=== PATIENT | male | born 1990 | race Caucasian/White ===

== ENCOUNTER 2024-05-01 04:33 | Emergency (ER) | payer MEDICAID ==
--- NOTE | 2024-05-01 05:07 | ED Physician Documentation ---
PD HPI HEADACHE - Stated complaint Stated Complaint: HEADACHE/VOMITING - Chief complaint Chief Complaint: Neuro - History obtained from History obtained from: Patient - Additional information Additional information: HPI from patient. Patient woke from sleep at approximately 3:30 AM this morning with severe bilateral parietooccipital WOODY associated with nausea (no vomiting) and photophobia. Denies visual changes. Denies h/o similar headaches; patient says he has had headaches before but never this severe and with these other features (nausea, photophobia). Denies injury, denies fever. PD PAST MEDICAL HISTORY - Past Medical History Past Medical History: Yes Psych: Post traumatic stress disorder - Past Surgical History Past Surgical History: No - Present Medications Home Medications: Ambulatory Orders Medication Instructions Recorded Confirmed PARoxetine HCL [Paxil] 20 mg PO DAILY 05/01/24 05/01/24 SUMAtriptan [Imitrex] 25 mg PO ONCE PRN #14 tablet 05/01/24 - Allergies Allergies/Adverse Reactions: Allergies Allergy/AdvReac Type Severity Reaction Status Date / Time No Known Drug Allergies Allergy Verified 05/01/24 04:41 - Social History Does the pt smoke?: No Smoking Status: Never smoker Does the pt drink ETOH?: No Does the pt have substance abuse?: No PD ED PE NORMAL - Vitals Vital signs reviewed: Yes - General General: Alert and oriented X 3, No acute distress (NAD although lights off in room for patient comfort and he is partially shielding his eyes from the light coming in from the hallway), Well developed/nourished - HEENT HEENT: PERRL, EOMI - Neck Neck: Supple, no meningeal sign - Cardiac Cardiac: RRR, No murmur - Respiratory Respiratory: No respiratory distress, Clear bilaterally - Neuro Neuro: Alert and oriented X 3, 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 Options for symptom control d/w patient and he strongly prefers to avoid narcotic/opiate medications. I offered toradol, imitrex. The latter offered because some aspects of presentation are s/o migraine WOODY (although he has not had these headaches before). After further discussion, he is given 6mg IM imitrex. After CT resulted, I discussed results with patient. He is reporting improvement in symptoms after the imitrex, with resolution of the photophobia. He is offered work note, but he declines and says he has to be at work shortly and, furthermore, that he feels well enough to do so. Return precautions reviewed. Rx for imitrex electronically submitted to [facility] Departure - Departure Disposition: Home, Self Care Clinical Impression: Headache Condition: Good Instructions: ED Cephalgia Unspecified Follow-Up: Nadege James FNP [Primary Care Provider] - Prescriptions: SUMAtriptan [Imitrex] 25 mg PO ONCE PRN #14 tablet PRN Reason: Headache Comments: There were no concerning findings on the CT scan of your head; specifically, no evidence of bleeding or mass. The cause of your headache is not apparent at this time. As we discussed, migraine headache is one possible cause. There is no test for migraine headaches; rather, it is a diagnosis of suspicion based on recurrent headaches that fit appropriate description for migraine headaches. You were given a dose of imitrex in the ER; this is a migraine-specific medication. I have electronically submitted a prescription for this medication to the [facility] in [place]. Contact your primary care provider's office this morning when they open to arrange for next available appointment for reevaluation. Discharge Date/Time: 05/01/24 06:17
[2024-05-01] MEDS: SUMAtriptan 6 MG/0.5 ML VIAL SUBQ STA (05:38)
[2024-05-01 06:24] VITALS: BP 124/76; O2SAT 98
--- NOTE | 2024-05-01 07:41 | CT Report ---
PROCEDURE: Head WO INDICATIONS: headache TECHNIQUE: Noncontrast 4.5 mm thick angled axial sections acquired from the foramen magnum to the vertex. For r adiation dose reduction, the following was used: automated exposure control, adjustment of mA and/or kV according to patient size. COMPARISON: None. FINDINGS: Image quality: Excellent. CSF spaces: Basal cisterns are patent. No extra-axial fluid collections. Ventricles are normal in size and shape. Brain: No midline shift. No intracranial masses or hemorrhage. Dick-white matter interface is norm al. Skull and face: Calvarium and visualized facial bones are intact, without suspicious lesions. Sinuses: Visualized sinuses and mastoids are clear. IMPRESSION: No acute intracranial pathology. Findings are concordant with preliminary interpretation provided by [facility]. Reviewed by: Sly Valentino MD on 05/01/2024 7:40 AM PDT Approved by: Sly Valentino MD on 05/01/2024 7:40 AM PDT Station ID: [id number]
== END 2024-05-01 06:17 | disposition home or self-care (01) ==
LOC: ED 04:33
DX: R51.9 Headache, unspecified (principal)
CPT/HCPCS: 96372; 99283; 99284